=== PATIENT | female | born 1960 | race Caucasian/White ===

== ENCOUNTER 2020-06-25 08:00 | Outpatient (CLI) | payer OTHER, SELFPAY ==
--- NOTE | 2020-06-25 08:07 | MM_ITS ---
WS: [id number] Bilateral screening digital mammogram, 06/25/2020 Clinical Data: SCREENING Comparison: 06/13/2018, 03/17/2016, 09/26/2012, 05/28/2010. Findings: The breast parenchymal pattern shows fibroglandular tissue. No spiculated masses or clustered calcifi cations are seen. There are no secondary signs of carcinoma. MM/[id number] Impression: 1. Negative bilateral mammogram unchanged. 2. Recommend annual screening mammograms. BIRADS: 1-Negative FOLLOW UP: 1 Year Follow-up The CAD quotation checker was used.
== END 2020-06-25 08:01 | disposition home or self-care (01) ==
LOC: RADSHAW 08:05
PROVIDERS: Visit Provider Nurse Practitioner
DX: Z12.31 Encounter for screening mammogram for malignant neoplasm of breast (principal)
CPT/HCPCS: 77067

== ENCOUNTER 2022-03-19 11:21 | Emergency (ER) | payer BC, SELFPAY ==
[2022-03-19] VITALS (9 sets, daily range): BP systolic 138–175; BP diastolic 66–84; PULSE 62–69; RESP 16–18; TEMP 36.4; O2SAT 94–98; BMI 25.8
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
[2022-03-19 12:14] LABS: Basophils # 0.1 10^3/uL (0.0-0.1); Basophils % 0.4 %; Eosinophils # 0.1 10^3/uL (0.0-0.8); Eosinophils % 0.6 %; Hematocrit 42.5 % (37.0-47.0); Lymphocytes # 1.4 10^3/uL (0.8-4.8); Mean Corpuscular HGB Conc 32.9 g/dL (30.0-36.0); Mean Corpuscular Hemoglobin 30.6 pg (28.0-34.0); Mean Platelet Volume 12.6 fL (7.4-10.4); Monocytes # 0.6 10^3/uL (0.2-0.9); Monocytes % 5.1 %; Neutrophils # 9.54 10^3/uL (1.8-7.7); Neutrophils % 81.5 %; Nucleated Red Blood Cells % 0 %; Platelet Count 226 10^3/cmm (130-400); Red Blood Count 4.57 10^6/uL (4.1-5.3); Red Cell Distribution Width 12.2 % (12.1-15.1); White Blood Count 11.7 10^3/uL (4.0-10.0)
[2022-03-19] MEDS: fentaNYL 50 mcg/mL INJ 2mL IVP (12:33)
[2022-03-19] MEDS: ondansetron 2 mg/ML SDV 2 mL 4 MG IVP (12:33)
[2022-03-19 13:08] LABS: Anion Gap 16.8 (5-19); Blood Urea Nitrogen 15 mg/dL (8-23); Calcium 9.4 mg/dL (8.5-10.5); Carbon Dioxide 26 mmol/L (22-29); Chloride 100 mmol/L (98-107); Glucose 103 mg/dL (65-115); Osmolality Calculated 289 mOsm/kg (285-295); Potassium 3.8 mmol/L (3.5-5.1); Sodium 139 mmol/L (136-145)
[2022-03-19] MEDS: iohexol 350 mg/mL 100 mL Btl IV (13:10)
[2022-03-19] MEDS: oxyCODONE 5 mg IR Tab/Cap PO (14:33)
== END 2022-03-19 14:55 | disposition home or self-care (01) ==
PROVIDERS: Emergency Provider Emergency Medicine
DX: S22.42XA Multiple fractures of ribs, left side, initial encounter for closed fracture (principal); S27.321A Contusion of lung, unilateral, initial encounter; S50.11XA Contusion of right forearm, initial encounter; V80.010A Animal-rider injured by fall from or being thrown from horse in noncollision accident, initial encounter
CPT/HCPCS: 70450; 71260; 72125; 73060; 73080; 73090; 74177; 80048; 85025; 96374; 96375; 99285; J2405; J3010; Q9967

== ENCOUNTER 2022-03-24 14:14 | Emergency (ER) | payer BC, SELFPAY ==
[2022-03-24 14:52] VITALS: PULSE 67; RESP 16; TEMP 37.1; O2SAT 95
--- NOTE | 2022-03-24 14:56 | CT_ITS ---
WS: [id number] CT HEAD TECHNIQUE: Noncontrast CT of the head obtained from the skullbase to the vertex. CLINICAL INFORMATION: trauma COMPARISON: 03/19/22 DLP: 1039.[address] scans at [facility] use at least one of these dose optimization techniques: automated e xposure control; mA and/or kV adjustment per patient size (includes targeted exams where dose is matc hed to clinical indication); or iterative reconstruction. FINDINGS: No evidence of intracranial hemorrhage or mass effect. Ventricular system and basal cisterns are choudhury nt. Mild small vessel changes with mild parenchymal volume loss. No extra-axial fluid collections. No evidence of mass or mass effect. Paranasal sinuses and mastoid air cells are well aerated. .Normal visualized soft tissues. CT/CT head wo con* [id number] IMPRESSION: 1. No evidence of intracranial hemorrhage or mass effect. 2. No acute intracranial findings.
[2022-03-24 20:07] VITALS: BP 183/86; BP 184/83; BP 208/95; PULSE 63; PULSE 68; PULSE 70
--- NOTE | 2022-03-24 20:29 | W.ED.DIZZY ---
HPI - Dizziness General: Chief Complaint: Dizziness Stated Complaint: postfall, dizzy, n/v Time Seen by Provider: 03/24/22 20:00 History of Present Illness: HPI Narrative: 61-year-old female presenting today with continued vertigo, nausea, and headaches. Patient notes that she was thrown from a horse several days ago. Was knocked unconscious. Sustained a closed head injury as well as multiple rib fractures. Came to this emergency room where she underwent a CT of her head neck and chest abdomen pelvis. She notes that since that time she has had continued thought finding difficulty nausea with exertion. She denies numbness tingling or weakness. She has intermittent vertigo. She denies significant chest pain. Does still have left shoulder pain. Patient notes has been try to take oxycodone for pain. However makes her extremely nauseous. She denies additional injuries. Review of Systems General: Reports: 10 or more systems reviewed and unremarkable except in HPI and below PFSH ED PFSH: Medical History (Updated 03/24/22 @ 20:32 by Colin Fernandes DO) No significant past medical history Surgical History (Updated 03/19/22 @ 11:46 by Lamberto Ng MD) History of hip replacement History of hysterectomy Family History (Updated 03/19/22 @ 11:46 by Lamberto Ng MD) Denies family history of Clotting disorder Bleeding disorder Physical Exam Const: COMMON NORMALS: no acute distress, patient oriented x3 and alert GENERAL APPEARANCE: cooperative ORIENTATION/CONSCIOUSNESS: Yes awake, Yes oriented to person, Yes oriented to place and Yes oriented to time HENMT: COMMON NORMALS: normocephalic, atraumatic, external ears normal, Normal external nose present and moist oral mucous membranes HEAD & SCALP: normal to inspection, normocephalic and atraumatic NOSE: Normal external nose present GENERAL EAR: hearing grossly impaired EXTERNAL EAR: Yes external ears normal Eye: COMMON NORMALS: Equal, round and reactive pupils present, EOMs intact bilaterally, conjunctivae normal and no scleral icterus GENERAL EYE: appearance normal, both eyes and all related structures EYELID: eyelids normal CONJUNCTIVA: Yes conjunctivae normal SCLERA: sclerae normal PUPIL: Yes Equal, round and reactive pupils present Neck/C-Spine: COMMON NORMALS: full ROM, supple and no JVD GENERAL: Yes normal visual inspection Lymph: LYMPHATIC: no lymphadenopathy noted and no lymphedema noted Chest: COMMONS NORMALS: normal inspection of the chest Resp: COMMON NORMALS: normal respiratory effort, No retractions and No use of accessory muscles Cardio: COMMON NORMALS: no JVD, regular rate and regular rhythm RATE: regular rate RHYTHM: regular rhythm GI: COMMON NORMALS: Normal to inspection, nondistended, normoactive bowel sounds present : COMMON NORMALS: Yes no CVA tenderness BLADDER/KIDNEY EXAM: Yes no CVA tenderness Back/Pelvis: COMMON NORMALS: no CVA tenderness and thoracic and lumbar spine normal to inspection Extremity: COMMON NORMALS: normal to inspection, full ROM and capillary refill normal GENERAL: Yes normal exam except as noted Neuro: COMMON NORMALS: patient oriented x3, CN's II-XII intact bilaterally, moves all extremities, no focal motor deficits, no sensory deficits noted and gait normal SENSORIUM/ORIENTATION: Yes alert, Yes oriented to person, Yes oriented to place and Yes oriented to time Psych: COMMON NORMALS: mental status grossly normal, Normal thought process present, cooperative and normal affect THOUGHT PROCESS: Normal thought process present Skin: COMMON NORMALS: no rashes or lesions noted and no wounds GENERAL SKIN EXAM: no rashes or lesions noted Course Vital Signs: Vital signs: Vital Signs Temperature 98.7 F 03/24/22 14:52 Pulse Rate 63 03/24/22 20:07 Respiratory Rate 16 03/24/22 14:52 Blood Pressure 208/95 03/24/22 20:07 Pulse Oximetry 95 03/24/22 14:52 Oxygen Delivery Me thod 03/24/22 14:52 MDM - Dizziness Medical Decision Making 61-year-old female presenting today with nausea and vomiting. Neurologic exam without focal abnormality. CT head without evidence of acute abnormality. Low suspicion for other acute intracranial abnormalities. Suspect patient with postconcussive syndrome. Will provide high-dose Zofran, diclofenac, Tylenol for pain control. Recommended oxycodone for only extreme cases of pain. Lab Data Radiology Impressions Head CT 03/24/22 14:56 IMPRESSION: 1. No evidence of intracranial hemorrhage or mass effect. 2. No acute intracranial findings. Discharge Plan Discharge Patient Disposition: Home Clinical Impression: Animal-rider injured by fall from or being thrown from horse in noncollision accident, initial encounter, Post-concussion syndrome Condition: Stable Prescriptions: New diclofenac sodium 75 mg tablet,delayed release (DR/EC) 75 mg PO BID Qty: 30 0RF acetaminophen 500 mg capsule 1,000 mg PO Q6H PRN (Reason: pain) Qty: 100 0RF methocarbamol 750 mg tablet 750 mg PO Q8H Qty: 30 0RF No Action estradiol 1 mg tablet 1 mg PO DAILY ondansetron 4 mg tablet,disintegrating 4 mg PO Q8H PRN (Reason: nausea and vomiting) Qty: 15 0RF oxycodone 5 mg tablet 5 mg PO Q4H PRN (Reason: pain) Qty: 30 0RF Discharge Orders: Discharge ED (Routine); Ordered 03/24/22 Ordered By: Colin Fernandes Referrals: Bianca Campuzano NP [Primary Care Provider] - Discharge Activity: Increase activity as tolerated Patient Instructions: Opioid Safety, Post-Concussive Syndrome Coding Level of Care Code ED Hypoid Gear Generator for Lucrecia Fwd Exam Comprehensive
[2022-03-24] MEDS: ondansetron 2 mg/ML SDV 2 mL 4 MG IVP (20:36)
[2022-03-24] MEDS: ketorolac 30 mg/mL INJ IVP (20:36)
[2022-03-24] MEDS: acetaminophen 325 mg Tablet 650 MG PO (20:36)
[2022-03-24] MEDS: sodium chloride 0.9% 1,000 ML 999 ML IV (20:36)
[2022-03-24 21:32] VITALS: BP 165/75; PULSE 55; RESP 16; O2SAT 99
[2022-03-24 21:45] VITALS: BP 165/75; PULSE 58; RESP 19; TEMP 36.6; O2SAT 98
== END 2022-03-24 21:56 | disposition home or self-care (01) ==
PROVIDERS: Emergency Provider Emergency Medicine; PCP Nurse Practitioner
DX: F07.81 Postconcussional syndrome (principal); V80.010A Animal-rider injured by fall from or being thrown from horse in noncollision accident, initial encounter
CPT/HCPCS: 70450; 96361; 96374; 96375; 99285; J1885; J2405; J7030

== ENCOUNTER 2022-05-30 07:53 | Outpatient (CLI) | payer BC, SELFPAY ==
--- NOTE | 2022-05-30 08:11 | MM_ITS ---
WS: [id number] BILATERAL SCREENING DIGITAL TOMOSYNTHESIS MAMMOGRAM WITH CAD HISTORY: SCREENING COMPARISON: 06/25/2020, 06/13/2018 Bilateral CC and MLO views with tomosynthesis and synthetic mammography submitted. Computer aided det ection analyzed. Breast composition: There are scattered areas of fibroglandular density. No suspicious masses, microc alcifications or architectural distortion. Benign calcification lateral LEFT breast. MM/[id number] IMPRESSION: BI-RADS: 2-Benign FOLLOW UP: 1 Year Follow-up
== END 2022-05-30 07:54 | disposition home or self-care (01) ==
LOC: RAD 07:53
PROVIDERS: PCP Nurse Practitioner; Visit Provider Nurse Practitioner
DX: Z12.31 Encounter for screening mammogram for malignant neoplasm of breast (principal)
CPT/HCPCS: 77063; 77067

== ENCOUNTER 2023-12-05 09:01 | Outpatient (CLI) | payer MEDICARE, BC, SELFPAY ==
--- NOTE | 2023-12-05 10:09 | MM_ITS ---
WS: [id number] VIEWS: MLO and CC views both breasts. 3D digital tomosynthesis is also included in this exam. Comparison made with prior exam of 05/28/2010, 09/26/2012, 03/17/2016, 06/13/2018, 06/25/2020, 05/30/2022. . Findings: There was no sign of mass, architectural distortion or suspicious calcification in either breast. The re are scattered areas of fibroglandular density Impression: MM/[id number] BI-RADS: 2-Benign finding. FOLLOW-UP: 1 Year Follow-up This mammogram was also analyzed by the Computer Aided Detection System [employer] Technical Training Instructor.
== END 2023-12-05 09:02 | disposition home or self-care (01) ==
LOC: RAD 09:09
PROVIDERS: PCP Nurse Practitioner; Visit Provider Nurse Practitioner Family
DX: Z12.31 Encounter for screening mammogram for malignant neoplasm of breast (principal)
CPT/HCPCS: 77063; 77067